=== PATIENT | female | born 1960 | race Caucasian/White ===

== ENCOUNTER 2017-10-22 12:54 | Emergency (ER) | payer BC ==
[~2017-10-22] VITALS: Ht 172.7 cm; Wt 91.0 kg
[2017-10-22 13:00] VITALS: BP 152/81; PULSE 118; RESP 20; TEMP 98.8; O2SAT 96
[2017-10-22] MEDS ORDERED: FLUO60TA PO (14:15)
[2017-10-22] MEDS ORDERED: LISI20TA3 PO (14:15)
[2017-10-22] MEDS ORDERED: OXYC-396 PO (14:15)
[2017-10-22] MEDS ORDERED: DIAZ10TA PO (14:15)
--- NOTE | 2017-10-22 14:49 | PD ---
HPI Chief Complaint: Medication Refill Request Time Seen by Provider: 14:18 Travel History International Travel<30 days: No Contact w/Intl Traveler<30days: No Traveled to known affect area: No History of Present Illness HPI This is a 57-year-old female here requesting refill of her oxycodone. She reports today is her last day of medication. She reports she got into an argument with her primary care provider and he fired her as a patient. She was given a 30 day supply and instructed to establish with a new primary or pain management clinic. She was seen by the [facility] primary care office today and they refused to refill her oxycodone. She denies any new injury or trauma. She reports she takes the medication for her chronic "body wide pain". She denies fever, chills, chest pain, shortness of breath, nausea, vomiting. PFSH Past Medical History Arthritis: Yes Anxiety: Yes Depression: Yes Hypertension: Yes Musculoskeletal: Yes (CHRONIC BACK & FOOT PAIN) Influenza Vaccination: No Past Surgical History Surgical History: No Previous Surgery Social History Alcohol Use: No Tobacco Use: Yes (/2 PPD) Substance Use: No Allergies-Medications (Allergen,Severity, Reaction): Coded Allergies: No Known Allergies (Unverified , 10/22/17) Reported Meds & Prescriptions Reported Meds & Active Scripts Active Reported Oxycodone (Oxycodone HCl) 20 Mg Tab 20 Mg PO Q6HR Diazepam 10 Mg Tab 10 Mg PO HS PRN Fluoxetine (Fluoxetine HCl) 60 Mg Tab 60 Mg PO DAILY Lisinopril-Hctz 20-25 Mg Tab 1 Tab PO DAILY Review of Systems Except as stated in HPI: all other systems reviewed are Neg General / Constitutional: No: Fever Eyes: No: Visual changes HENT: No: Headaches Cardiovascular: No: Chest Pain or Discomfort Respiratory: No: Shortness of Breath Gastrointestinal: No: Abdominal Pain Genitourinary: No: Dysuria Musculoskeletal: Positive: Pain ("all over") Skin: No Rash Neurologic: No: Weakness Physical Exam Exam Limitations: Uncooperative, Left before Exam Complete Narrative GENERAL: Alert and well-appearing 57-year-old female sitting upright on the side of the stretcher. Observed ambulating with a steady gait SKIN: Warm and dry. HEAD: Normocephalic. EYES: No injection or drainage. NECK: Supple Data Data Last Documented VS Vital Signs Date Time Temp Pulse Resp B/P (MAP) Pulse Ox O2 Delivery O2 Flow Rate FiO2 10/22/17 13:00 98.8 118 20 152/81 (104) 96 MDM Medical Decision Making Medical Screen Exam Complete: Yes Emergency Medical Condition: Yes Differential Diagnosis Medication refill, medication noncompliance, chronic pain syndrome Narrative Course This is a 57-year-old female here requesting refill of her oxycodone she has been on for the last year for chronic pain. She was recently fired by her primary care provider will not give further details regarding that situation. She denies any acute injury or trauma. She is well-appearing. I explained that chronic pain medication would not be refilled from the emergency department. At that time patient stood up and ambulated with a steady gait out of the emergency room. Diagnosis Primary Impression: Encounter for medical screening examination Referrals: Primary Care Physician Patient Instructions: General Instructions Departure Forms: Tests/Procedures Additional Instructions: Establish with a new primary care or pain management doctor Disposition: 01 DISCHARGE HOME Condition: Stable Vero Borja Oct 22, 2017 14:49
== END 2017-10-22 14:50 | disposition home or self-care (01) ==
LOC: PHED 12:54 → PHEFT 14:50
DX: Z76.0 Encounter for issue of repeat prescription (principal); G89.29 Other chronic pain; F41.9 Anxiety disorder, unspecified; F32.9 Major depressive disorder, single episode, unspecified; I10 Essential (primary) hypertension; M19.90 Unspecified osteoarthritis, unspecified site; F17.200 Nicotine dependence, unspecified, uncomplicated; Z79.899 Other long term (current) drug therapy
CPT/HCPCS: 99281